=== PATIENT | male | born 1995 | race Caucasian/White ===

== ENCOUNTER → 2019-07-14 17:06 | Outpatient (CLI) | payer OTHER, SELFPAY | PROVIDERS: Visit Provider Obstetrics & Gynecology | DX: Z01.83 Encounter for blood typing (principal) | CPT/HCPCS: 86900; 86901 ==

== ENCOUNTER → 2021-05-19 16:02 | Outpatient (CLI) | payer OTHER, SELFPAY | PROVIDERS: Visit Provider Student in an Organized Health Care Education/Training Program | DX: Z01.83 Encounter for blood typing (principal) | CPT/HCPCS: 36415 ==